=== PATIENT | female | born 1945 | race Caucasian/White ===

== ENCOUNTER 2019-05-07 11:50 | Inpatient (IN) | payer MEDICARE ==
[2019-05-07 12:23] VITALS: BP 135/67
[2019-05-07] MEDS ORDERED: Magnesium Hydroxide (MOM) 30 mL UDC PO PRN (12:23)
[2019-05-07] MEDS ORDERED: Maalox 30 mL Cup PO PRN (12:23)
--- NOTE | 2019-05-07 13:35 | History & Physical ---
ADMIT DATE: 05/07/2019 IDENTIFYING INFORMATION: The patient is a 74-year-old female. [facility]# [id number]
--- NOTE | 2019-05-07 16:23 | Psychiatric Evaluation ---
DATE OF SERVICE: 05/07/2019 IDENTIFYING INFORMATION: The patient is a 74-year-old female. CHIEF COMPLAINT: "They are trying to get rid of me." She is here for admission. HISTORY OF PRESENT ILLNESS: The patient apparently was put on a hold for grave disability and passionately the patient said that the lights in the hospital were harming her body and that she was sensitive to electricity. She was left in front of a [employer] by her daughter and brought to the hospital on a hold due to concern for erratic and bizarre behavior. She was agitated . She states she is just eating concentrated food, which consist of pills, oils, and powder. The patient was somewhat suspicious when I talked to her, she said that her granddaughter refused to help her and they are getting rid of her that her family have 14 million dollars property worth and that nobody is willing to help her, so they are trying to get rid of her and take her money. The patient reports that she is not depressed. Denies auditory or visual hallucinations that she sleeps well. She eats well. Though she admits to history of depression and when she was with her , he depressed her and she left him. She reports he locked her up, but she managed to leave. PAST PSYCHIATRIC HISTORY: She has a prior history of depression, but she says she has never been on medication. She is not a reliable historian. The patient reports her granddaughter refused to help her. Denies prior suicide attempt. MEDICAL HISTORY: Deferred to the medical doctor. ALLERGIES: THE PATIENT IS ALLERGIC TO SULFA, ANTIBIOTIC. SOCIAL HISTORY: I will defer to the medical doctor. FAMILY HISTORY: The patient reports she is since June of last year. She has five children, 1 . She reports that she is still in school as she did not graduate. 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 She reports no substance abuse. Denies ever having any substance abuse problem. Denies family psychotic disorder. MENTAL STATUS EXAMINATION: The patient is appropriately dressed, not well groomed. She was alert. She believes this is 05/06/2019. She reported that she sleeps well, eats well. She denies any auditory or visual hallucination; however, she was paranoid about her family. She believed apparently the staff report that she was living in a boot and then her daughter dropped her in a [employer] and left her. She was acting erratic and bizarre. The patient denies any intent to harm herself or anyone. She denies any auditory or visual hallucination, but she was making odd statements. She seems to have average intelligence just by able to give information, knows the president of [facility], long terms were age and date of , but current president being Uziel was before him and recent memory is poor. She is not sure of the exact details that led to her hospitalization. She denies any intent to harm herself or anyone, paranoid towards her family. They tried to lock her, they do not want to help her with placement. She is somewhat grandiose. Her insight about her illness is poor, does not know what the problem is, but yet she knows she is in the hospital. She knows the date. Her judgment is poor with her acting bizarre. IMPRESSION: Psychosis, not otherwise specified, rule out early dementia. MEDICAL DIAGNOSES: As per medical doctor. PLAN: We will watch the patient and add medication accordingly. ESTIMATED LENGTH OF STAY: 3-7 days. DISCHARGE CRITERIA: Decreasing bizarre behavior, acting right with a safe place to go to after discharge, outpatient treatment. JOB# [id number] SANIYA
--- NOTE | 2019-05-08 02:02 | History & Physical ---
ADMIT DATE: 05/07/2019 CHIEF COMPLAINT: Mental disorder. HISTORY OF PRESENT ILLNESS: This is a 74-year-old female who was admitted to Geropsych Unit for underlying psychiatric illness by Dr. Smith. Dr. Smith requested medical H and P on this patient. The patient has history of ____ glaucoma, left eye blindness. Also, the patient has history of diabetes and right neck sebaceous cyst by Dermatology. No fever, no chills, no nausea, no vomiting, no abdominal pain, no headache, no visual disturbance reported. PAST MEDICAL HISTORY: As per HPI. PAST SURGICAL HISTORY: No significant past surgical history. FAMILY HISTORY: Noncontributory. SOCIAL HISTORY: Lives alone. No reported alcohol, tobacco, or drugs. CURRENT MEDICATIONS: Noted. ALLERGIES: SULFA. REVIEW OF SYSTEMS: No fever, no chills, no cough, no congestion, no abdominal pain, no nausea, no vomiting, no hematochezia, no melena, no chest pain, no palpitations. PHYSICAL EXAMINATION: VITAL SIGNS: Temperature 97.0, pulse 60, respirations 18, blood pressure 124/72, 100% on room air. Pain 0/10. HEENT: Normocephalic, atraumatic, right-sided neck lymph node. HEART: S1, S2 normal. LUNGS: Clear to auscultation. ABDOMEN: Soft. NEUROLOGIC: Move all extremities. ____. ASSESSMENT: 1. Right neck sebaceous cyst. 2. Left eye blindness. 3. Generalized weakness. 4. Diabetes. PLAN: Psych management per psychiatrist. Outpatient followup with Dermatology and Ophthalmology advised. Discussed the patient's medical issues with nursing staff . JOB# [id number]
[2019-05-08 08:25] LABS: CHOLESTEROL 197 mg/dL (<200); HDL -HIGH DENSITY LIPOPROTEIN 68 mg/dL (23-92); TRIGLYCERIDES 71 mg/dL (<150)
[2019-05-08] MEDS: Multivitamin Tab PO SCH (09:01)
--- NOTE | 2019-05-08 23:07 | Progress Notes ---
DATE: 05/08/2019 SUBJECTIVE: The patient in the hospital was making claims that the lights in the hospital are harming her body. Apparently, she is claiming that her locked her up. The patient is stating that she got 14 million dollars worth of property that her locked her up for years, kept her caged and then released her. Difficult to follow her thought processes, is not really making much sense, stating that she is very rich but at the same time stating she is homeless and she has no money. The patient is fearful from radiation from the light, mostly keeps to self. Unclear if she has any past psychiatric diagnoses. The patient denies. ASSESSMENT: The patient remains symptomatic, making some bizarre comments. PLAN: We will continue to monitor, attempt to increase collateral. It seems that her symptoms are currently psychotic in nature AO to name, place, not situation, not year. JOB# [id number]
[2019-05-09 07:09] LABS: A1C 5.3 % (4.8-5.6)
[2019-05-09] MEDS: Multivitamin Tab PO SCH (09:32)
--- NOTE | 2019-05-10 02:25 | Progress Notes ---
DATE: 05/09/2019 SUBJECTIVE: The patient in the hospital, very fixated on her eyes, fixated on getting drops for her eyes, taking some concoction made by her chiropractor, which she believes is for her heart. She is extremely ruminative, was apparently dropped off by the daughter, was agitated and not making much sense. The patient stating that she has to go sailing tomorrow that she has got millions of dollars. She is extremely poorly oriented, concerns for dementia. 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 ASSESSMENT: The patient symptomatic, unable to really be cared for at a lower level , will likely need a 14-day hold as she is pushing to leave, but it is unclear where she is going to go. PLAN: We will initiate Aricept, vitals were noted, also a small dose of Risperdal versus Seroquel. JOB# [id number]
[2019-05-10] MEDS: Multivitamin Tab PO SCH (08:41)
--- NOTE | 2019-05-11 05:35 | Progress Notes ---
DATE: 05/10/2019 SUBJECTIVE: The patient in the hospital, extremely confused, delusional. The patient believing that she lives in a huge boat ____. Apparently, the daughter dropped her mother off at the congregational and abandoned her. APS report being filed. The patient presented with bizarre symptoms and agitation. The patient is not manageable at home. 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 PLAN: We will continue to monitor. Continue dosing of medications. JOB# [id number]
[2019-05-11] MEDS: Multivitamin Tab PO SCH (09:24)
--- NOTE | 2019-05-11 19:49 | Progress Notes ---
DATE: 05/11/[address] Smith. Case was discussed with staff of the patient, reviewed records. This is a well-known case to me as I have seen her upon admission covering for Dr. Smith. The patient continues to be confused, delusional, continues to believe that she is still living in her boots, those are as I mentioned before dropped her outside the [employer] and abandoned her. The patient believes that she has 14 million dollars worth of property, EPS report was filed. The patient continues to be bizarre, easily agitated, not manageable at home. She has been on Risperdal that was initiated 2 days ago 0.25 mg twice a day with no side effects, no sedation, no nausea, no extrapyramidal symptoms. We will continue the patient in group therapy, milieu therapy, and adjust the medications as needed. JOB# [id number]
--- NOTE | 2019-05-11 21:07 | General Progress Note ---
Subjective - Review of Systems Service Date: 05/11/19 Subjective: Patient seen and examined doing ok denied any complaints Objective - Results Recent Labs: Laboratory Last Values Triglycerides 71 mg/dL (<150) 05/08/19 07:45 Cholesterol 197 mg/dL (<200) 05/08/19 07:45 LDL Cholesterol Direct 124 mg/dL (75-193) 05/08/19 07:45 HDL Cholesterol 68 mg/dL (23-92) 05/08/19 07:45 - Physical Exam Vitals and I&O: Vital Signs Temp 97.1 F 05/11/19 15:54 Pulse 62 05/11/19 15:54 Resp 18 05/11/19 15:54 BP 107/63 05/11/19 15:54 Pulse Ox 96 05/11/19 15:54 Intake & Output 05/11/19 05/11/19 05/12/19 06:59 18:59 06:59 Intake Total 120 1200 Balance 120 1200 Intake: Oral 120 1200 Other: # Voids 3 4 # Bowel Movements 1 Stool Characteristics Soft Formed Active Medications: Current Medications Acetaminophen (Tylenol) 650 mg PO Q4HR PRN PRN Reason: Mild Pain / Temp above 100 Stop: 07/06/19 12:22 Al Hydrox/Mg Hydrox/Simethicone (Maalox) 30 ml PO Q4HR PRN PRN Reason: GI DISTRESS Stop: 07/06/19 12:22 Donepezil HCl (Aricept) 5 mg PO HS LISE Stop: 07/08/19 20:59 Last Admin: 05/10/19 20:16 Dose: Not Given Lorazepam (Ativan) 0.5 mg PO Q4HR PRN; Protocol PRN Reason: Agitation Stop: 06/06/19 12:22 Magnesium Hydroxide (Milk Of Magnesia) 30 ml PO HS PRN PRN Reason: Constipation Multivitamins/Vitamin C (Theragran) 1 tab PO DAILY LISE Stop: 07/07/19 08:59 Last Admin: 05/11/19 09:24 Dose: Not Given Risperidone (Risperdal) 0.25 mg PO BID LISE; Protocol Stop: 07/08/19 16:59 Last Admin: 05/11/19 17:15 Dose: 0.25 mg Zolpidem Tartrate (Ambien) 5 mg PO HSMR1 PRN PRN Reason: Insomnia Stop: 07/06/19 12:22 Cardiovascular: Regular rate Lungs: Clear to auscultation Assessment/Plan - Assessment Assessment: Right neck sebaceous cyst DM II Weakness Psych disorder - Plan Plan: Continue current treatment Monitor vitals Psych follow up
[2019-05-12] MEDS: Multivitamin Tab PO SCH (08:29)
--- NOTE | 2019-05-12 21:23 | Progress Notes ---
DATE: 05/12/2019 SUBJECTIVE: The patient in the hospital. The patient remains confused, delusional, still talking about going back to her boat and talking about going to [facility], stating that she wants her daughter and mother to live there with her. The patient then starts claiming that I am trying to push street drugs on her own. She is making allegations that I wanted to take street medications, still bizarre. Oriented to name, year and month, but otherwise confused why she is here, still talking about having millions of dollars, want to live on the boat. The patient is here because the daughter dropped her off in front of the faith essentially abandoning her. The daughter stating that the patient is bizarre, agitated, argumentative. She could not handle her at home. PLAN: We will continue to monitor. We are also trying to find a safe dispo plan for the patient while we stabilize her. JOB# [id number]
[2019-05-13] MEDS ORDERED: Magnesium Hydroxide (MOM) 30 mL UDC PO PRN (06:42)
[2019-05-13] MEDS: Multivitamin Tab PO SCH ×2 (08:59→09:00)
--- NOTE | 2019-05-13 22:50 | Progress Notes ---
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 I will attempt to reach out to her daughter today to discuss possible treatment options, but right now the patient is pretty acute, still psychotic. JOB# [id number]
--- NOTE | 2019-05-14 08:32 | Progress Notes ---
DATE: 05/14/2019 SUBJECTIVE: The patient in the hospital; AO to name, place, not situation. 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 The patient is still claiming that she is constipated, this is being addressed. The patient does not want to take medications here. Stating she just wants to use her biofeedback device. The patient claiming that there is a patient on the unit who was trying to have sex with her. Still talking about electricity and radiation coming from the lights. ASSESSMENT: The patient remains symptomatic as noted. PLAN: We will continue to monitor. We will attempt to reach out to the patient's daughter today. JOB# [id number]
[2019-05-14] MEDS: Multivitamin Tab PO SCH (10:47)
[2019-05-15] MEDS: Multivitamin Tab PO SCH ×2 (08:23→08:27)
[2019-05-16] MEDS: Multivitamin Tab PO SCH (08:55)
--- NOTE | 2019-05-16 18:58 | Progress Notes ---
DATE: 05/15/2019 SUBJECTIVE: The patient remains mildly agitated, very delusional, and only wants to have her biofeedback machine and she states that she only takes enzymes, does not want to take medications, refusing medications, grandiose, talking about having millions of dollars, states that she lives on a boat with her daughter. She does not live on a boat with her daughter. The daughter lives on a boat. The patient does not live with her. ASSESSMENT: The patient remains psychotic, delusional. PLAN: We will continue to monitor. Danyell was filed. JOB# [id number]
--- NOTE | 2019-05-17 01:37 | Progress Notes ---
DATE: 05/16/2019 The patient in the hospital, dropped off at [facility] by daughter for a few hours, apparently the daughter states she was going to come pick her up and did, but the patient was looking so disheveled that they took her to the Emergency Room because she was acting strange. 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 The patient remains symptomatic, ongoing symptoms, safety concerns. I am currently pending her Riese hearing. JOB# [id number]
[2019-05-17] MEDS: Multivitamin Tab PO SCH (08:26)
--- NOTE | 2019-05-18 05:03 | Progress Notes ---
DATE: 05/17/2019 The patient seen, chart reviewed, discussed with staff. The patient remains somewhat disoriented and delusional, bizarre. On a positive note, she is taking her medications. Again, she is taking her medications. Danyell petition cancelled or rather withdrawn ____. 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 This has not been confirmed. We will continue to monitor her and titrate medications today. JOB# [id number]
[2019-05-18] MEDS: Multivitamin Tab PO SCH (09:23)
--- NOTE | 2019-05-19 01:29 | Progress Notes ---
DATE: 05/18/2019 SUBJECTIVE: The patient is still paranoid, telling people to call 911. Ongoing delusions, believing she is a medical student, her daughter is going to come and pick her up. She is somewhat calmer today. She seems to be more engaged. No agitation, talking less about her ideations about enzymes, no yelling or screaming episodes. MEDICATIONS: Reviewed. PLAN: We will continue to monitor. We are trying to find a place for her to go as she cannot really live with her daughter right now and clearly cannot take care of her basic needs. JOB# [id number]
[2019-05-19] MEDS: Multivitamin Tab PO SCH (08:27)
[2019-05-19] MEDS ORDERED: risperiDONE 1 mg/mL 30 mL Bottle PO SCH (17:00)
[2019-05-19] MEDS ORDERED: RISPERIDONE PO SCH (17:00)
--- NOTE | 2019-05-19 22:40 | Progress Notes ---
DATE: 05/19/2019 The patient has been taking her medications. 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 She is taking medications, seems to be generally calmer, less rambling behaviors. I will be continuing to titrate the medications. We are also trying to find her a place to go while we stabilize her. JOB# [id number]
[2019-05-20] MEDS: Multivitamin Tab PO SCH (09:00)
--- NOTE | 2019-05-20 19:07 | Progress Notes ---
DATE: 05/20/2019 SUBJECTIVE: The patient is currently in the hospital, still very forgetful, claiming her head is about to burst open, stating that she is blind because she was radiated, believes she is going to live in a boat. The patient is taking her medications, seems to be generally calmer, more cooperative, to some extent she may be approaching her baseline. Placement has been confirmed; we are currently awaiting further stabilization. Fair sleep with brass finisher awakenings. Fair appetite. ASSESSMENT: The patient with ongoing delusions, perceptual disturbances, forgetfulness. I will be increasing her dosing of the Risperdal. JOB# [id number]
[2019-05-21] MEDS: Multivitamin Tab PO SCH (10:02)
[2019-05-22] MEDS: Multivitamin Tab PO SCH (08:30)
--- NOTE | 2019-05-22 19:37 | Progress Notes ---
DATE: 05/21/2019 SUBJECTIVE: The patient seen, chart reviewed, discussed with staff today, 05/21/2019. The patient is still complaining of polite ____, still with ongoing delusions, perceptual disturbances. She is calmer, more cooperative. She is taking her medications. She is a lot more linear and engaged in exam, sleeping well, eating well, likely approaching her baseline. We are going to try to confirm placement for her. We will continue to monitor. If she is still requiring some redirection, prompting. JOB# [id number]
--- NOTE | 2019-05-22 21:47 | Discharge Summary ---
DATE OF DISCHARGE: 05/22/2019 HISTORY OF PRESENT ILLNESS: A 74-year-old female coming into the hospital, was dropped off at a [facility] facility by her daughter. Her daughter came to pick her back up. The patient was gone. Apparently, she was acting strange and was unkempt and was confused and was taken to the ER and was sent to [facility]. The daughter notes that she never abandoned her mom, but they were fighting and that is why she needed some time away from the mom. The patient mostly fixated when she got here on the lights, electricity believing she was a medical student, talking about enzymes, rambling, delusions. Started on medications, refused, but then started taking them. As the hospitalization course progressed, she improved, delusions dissipated. She was generally calmer, more cooperative, friendly on exam. No agitation and accepting a placement, better sleep, better appetite. No side effects, getting along better with others, amenable to care. CONDITION UPON DISCHARGE: Improved, allowing ADLs. Mood "better." Affect constricted. Thought processes were tangential, confused, but no agitation, no escalation of behaviors, redirectable. No SI, no HI. No hallucinations, but still fixated on the lights, electricity from the lights. Better insight, better impulse control. 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 Per the daughter, who I spoke with over the phone, no history of mental illness, no schizophrenia for example. PROGNOSIS: The patient follows up with outpatient mental health services and remains compliant with treatment. Prognosis will improve, otherwise guarded. [facility]# [id number]
== END 2019-05-22 14:30 | DRG 885 ==
LOC: GERO 11:50
PROVIDERS: ADMIT Psychiatry & Neurology Psychiatry; ATTEND Psychiatry & Neurology Psychiatry
DX: F29 Unspecified psychosis not due to a substance or known physiological condition (principal); F03.91 Unspecified dementia, unspecified severity, with behavioral disturbance; E11.9 Type 2 diabetes mellitus without complications; H40.9 Unspecified glaucoma; H54.62 Unqualified visual loss, left eye, normal vision right eye; Z60.2 Problems related to living alone; L72.3 Sebaceous cyst; Z88.2 Allergy status to sulfonamides; Z79.899 Other long term (current) drug therapy
CPT/HCPCS: 36415-UA; 80061-TC; 83036-90; G0410